=== PATIENT | male | born 1985 | race Caucasian/White ===

== ENCOUNTER 2018-03-25 08:17 | Emergency (ER) | payer OTHER ==
[2018-03-25 08:25] VITALS: TEMP 97.7
[2018-03-25] MEDS ORDERED: ONDANSETRON 4 MG/2 ML VIAL IVP STA ×2 (08:36→09:03)
[2018-03-25] MEDS ORDERED: MORPHINE SULFATE 4 MG/ML SYRINGE IV STA (08:36)
[2018-03-25] MEDS ORDERED: SODIUM CHLORIDE 0.9% 1,000 ML IV STA (08:36)
--- NOTE | 2018-03-25 08:45 | ED ---
General Adult HPI - General Chief complaint: Nausea/Vomiting/Diarrhea Stated complaint: Abd Pain Time Seen by Provider: 03/25/18 08:26 Source: patient, RN notes reviewed Mode of arrival: wheelchair Limitations: no limitations - History of Present Illness Initial comments: Patient 32-year-old male with significant past medical history for Behcet's disease, presented to the emergency room today with a chief complaint of increased nausea vomiting that started early this morning proxy 4 AM. Patient does admit that he's had some similar symptoms in the past with his Behcet's. Patient does admit that he had a bowel movement this morning that was loose. Does admit to pain on the left side of the abdomen. Admits to increased nausea vomiting. Denies any signs of blood in the emesis. Patient denies any other complaints currently. Patient denies any recent fever, chills, shortness of breath, chest pain, back pain, nausea or vomiting, numbness or tingling, dysuria or hematuria, headaches or visual changes, or any other complaints. - Related Data Home Medications Medication Instructions Recorded Confirmed Steroid (Unknown) 0 mg PO DIRECTED 03/25/18 Previous Rx's Medication Instructions Recorded Ondansetron Odt [Zofran ODT] 4 mg PO Q8HR PRN #20 tab 03/25/18 Allergies Allergy/AdvReac Type Severity Reaction Status Date / Time Milk Containing Products AdvReac Nausea & Verified 03/25/18 08:40 [Dairy] Vomiting Yeast AdvReac Nausea & Verified 03/25/18 08:40 Vomiting Review of Systems ROS Statement: Those systems with pertinent positive or pertinent negative responses have been documented in the HPI. ROS Other: All systems not noted in ROS Statement are negative. Past Medical History Additional Past Medical History / Comment(s): autoimmune disorder History of Any Multi-Drug Resistant Organisms: None Reported Past Psychological History: No Psychological Hx Reported Smoking Status: Never smoker Past Alcohol Use History: None Reported Past Drug Use History: None Reported General Exam - General Exam Comments Initial Comments: General: The patient is awake and alert, in mild distress. Eye: There is normal conjunctiva bilaterally. No signs of icterus. Ears, nose, mouth and throat: There are moist mucous membranes and no oral lesions. Neck: The neck is supple, there is no tenderness or JVD. Cardiovascular: There is a regular rate and rhythm. No murmur, rub or gallop is appreciated. Respiratory: Lungs are clear to auscultation, respirations are non-labored, breath sounds are equal. No wheezes, stridor, rales, or rhonchi. Gastrointestinal: Had a soft on palpation. Patient does have tenderness left side of the abdomen. No rebound, guarding or CVA tenderness. Musculoskeletal: Normal ROM, no tenderness. Strength 5/5. Sensation intact. Pulses equal bilaterally 2+. Neurological: A&O x 3. CN II-XII intact, There are no obvious motor or sensory deficits. Coordination appears grossly intact. Speech is normal. Skin: Skin is warm and dry and no rashes or lesions are noted. Psychiatric: Cooperative, appropriate mood & affect, normal judgment. Limitations: no limitations Course Vital Signs 03/25/18 03/25/18 03/25/18 08:22 09:30 10:52 Temperature 97.7 F Pulse Rate 84 51 L 50 L Respiratory 20 22 18 Rate Blood Pressure 154/63 136/87 130/84 O2 Sat by Pulse 99 100 98 Oximetry Medical Decision Making - Medical Decision Making CT of the abdomen and pelvis reviewed and shows 1. Mild pelvic free fluid nonspecific. 2 small prominent fluid-filled small bowel loops in the pelvis could reflect regional ileus/enteritis. 3. Mild hepatomegaly. 4. Periorbital edema within the liver suggests aggressive fluid adjacent. Patient reexamined at this time is resting comfortably. His abdomen is soft on palpation. He does admit that his had similar symptoms in the past with his Behcet's disease. Case discussed in detail with attending physician Dr. Morin. Patient has had episodes of vomiting. Will be given nausea medicine to go home with. Advised return if symptoms increase or worsen Patient will be given information follow-up with GI here locally. - Lab Data Result diagrams: 03/25/18 08:40 03/25/18 08:40 Lab Results 03/25/18 03/25/18 03/25/18 Range/Units 08:40 08:40 08:40 WBC 11.7 H (3.8-10.6) k/uL RBC 4.94 (4.30-5.90) m/uL Hgb 14.9 (13.0-17.5) gm/dL Hct 45.3 (39.0-53.0) % MCV 91.7 (80.0-100.0) fL MCH 30.2 (25.0-35.0) pg MCHC 32.9 (31.0-37.0) g/dL RDW 13.4 (11.5-15.5) % Plt Count 237 (150-450) k/uL Neutrophils % 75 % Lymphocytes % 18 % Monocytes % 4 % Eosinophils % 2 % Basophils % 0 % Neutrophils # 8.8 H (1.3-7.7) k/uL Lymphocytes # 2.1 (1.0-4.8) k/uL Monocytes # 0.5 (0-1.0) k/uL Eosinophils # 0.2 (0-0.7) k/uL Basophils # 0.0 (0-0.2) k/uL Sodium 142 (137-145) mmol/L Potassium 4.3 (3.5-5.1) mmol/L Chloride 110 H (98-107) mmol/L Carbon Dioxide 24 (22-30) mmol/L Anion Gap 8 mmol/L BUN 17 (9-20) mg/dL Creatinine 1.02 (0.66-1.25) mg/dL Est GFR (CKD-EPI)AfAm >90 (>60 ml/min/1.73 sqM) Est GFR (CKD-EPI)NonAf >90 (>60 ml/min/1.73 sqM) Glucose 107 H (74-99) mg/dL Plasma Lactic Acid Jerry 1.2 (0.7-2.0) mmol/L Calcium 10.2 (8.4-10.2) mg/dL Total Bilirubin 0.7 (0.2-1.3) mg/dL AST 53 (17-59) U/L ALT 41 (21-72) U/L Alkaline Phosphatase 50 (38-126) U/L Total Protein 7.1 (6.3-8.2) g/dL Albumin 4.4 (3.5-5.0) g/dL Amylase 74 (30-110) U/L Lipase 68 (23-300) U/L Disposition Clinical Impression: Abdominal pain Disposition: HOME SELF-CARE Condition: Good Instructions: Abdominal Pain (ED) Additional Instructions: Please use medication as discussed. Please follow-up with GI/family doctor in the next 2 days of symptoms have not improved. Please return to emergency room if the symptoms increase or worsen or for any other concerns. Prescriptions: Ondansetron Odt [Zofran ODT] 4 mg PO Q8HR PRN #20 tab PRN Reason: Nausea Is patient prescribed a controlled substance at d/c from ED?: No Referrals: None,Stated [Primary Care Provider] - 1-2 days Rachel Alexis MD [STAFF PHYSICIAN] - 1-2 days Sophy Patel MD [REFERRING] - 1-2 days Micheal Foy DO [STAFF PHYSICIAN] - 1-2 days Time of Disposition: 11:19
[2018-03-25 09:00] LABS: Basophils % (A) 0 %; Eosinophils # (A) 0.2 k/uL (0-0.7); Eosinophils % (A) 2 %; HCT 45.3 % (39.0-53.0); HGB 14.9 gm/dL (13.0-17.5); Lymphocytes # (A) 2.1 k/uL (1.0-4.8); Lymphocytes % (A) 18 %; MCH 30.2 pg (25.0-35.0); MCHC 32.9 g/dL (31.0-37.0); MCV 91.7 fL (80.0-100.0); Mean Platelet Volume 7.2; Monocytes # (A) 0.5 k/uL (0-1.0); Monocytes % (A) 4 %; Neutrophils # (A) 8.8 k/uL (1.3-7.7); Neutrophils % (A) 75 %; Platelet Count 237 k/uL (150-450); RBC 4.94 m/uL (4.30-5.90); RDW 13.4 % (11.5-15.5); WBC 11.7 k/uL (3.8-10.6)
[2018-03-25] MEDS ORDERED: LORazepam 2 MG/ML INJ IV STA (09:03)
[2018-03-25 09:04] LABS: ALT 41 U/L (21-72); AST 53 U/L (17-59); Albumin 4.4 g/dL (3.5-5.0); Alkaline Phosphatase 50 U/L (38-126); Amylase 74 U/L (30-110); Anion Gap 8 mmol/L; Blood Urea Nitrogen 17 mg/dL (9-20); Calcium 10.2 mg/dL (8.4-10.2); Carbon Dioxide 24 mmol/L (22-30); Chloride 110 mmol/L (98-107); Glucose 107 mg/dL (74-99); Lipase 68 U/L (23-300); Potassium 4.3 mmol/L (3.5-5.1); Sodium 142 mmol/L (137-145); Total Bilirubin 0.7 mg/dL (0.2-1.3); Total Protein 7.1 g/dL (6.3-8.2)
[2018-03-25] MEDS ORDERED: HYDROmorphone 1 MG/ML 1 ML SYRINGE IVP STA (10:26)
[2018-03-25] MEDS ORDERED: PROMETHAZINE INJ 25 MG in SODIUM CHLORIDE 0.9% 50 ML IVPB STA (10:27)
--- NOTE | 2018-03-25 10:48 | CT ---
EXAMINATION TYPE: CT abdomen pelvis w con DATE OF EXAM: 03/25/2018 COMPARISON: NONE HISTORY: 32-year-old male Generalized abd pain, patient has Behcet's autoimmune disease TECHNIQUE: Contiguous axial scanning of the abdomen and pelvis following administration of 100 ml Iso rosalinda 300 IV contrast. Delayed images through the kidneys and coronal/sagittal reconstructions perform ed. CT DLP: 705.5 mGycm Automated exposure control for dose reduction was used. FINDINGS: Heart normal size without pericardial effusion. Tiny hiatal hernia. Lung bases clear without pleural effusion. Liver mildly enlarged at 18.0 cm. There is periportal edema likely due to aggressive hydration; ross l venous system is patent. No biliary ductal dilatation. Gallbladder, adrenal glands, kidneys, spleen, and pancreas appear within normal limits. Incidentally, there are 2 right renal veins. Symmetric uptake and excretion of contrast from both kid neys. No dilated small bowel, free fluid, or free air. No mesenteric or retroperitoneal lymphadenopathy. Normal appendix. Mild stool burden. No pericolonic inflammatory change. Some prominent right-sided mesenteric lymph nodes measure up to 6 mm. Otherwise, no mesenteric or re troperitoneal lymphadenopathy seen. There are a couple prominent fluid-filled small bowel loops in the pelvis. Adjacent mild pelvic free fluid. No pelvic lymphadenopathy seen. Bladder is urine distended. Bones: Mild degenerative disc disease thoracolumbar junction. No osseous destructive process. IMPRESSION: 1. MILD PELVIC FREE FLUID IS NONSPECIFIC BUT ABNORMAL IN A MALE PATIENT. 2. SOME PROMINENT FLUID FILLED SMALL BOWEL LOOPS IN THE PELVIS COULD REFLECT A REGIONAL ILEUS OR ENTE RITIS. THE PELVIC FREE FLUID MAY BE REACTIVE. 3. MILD HEPATOMEGALY (18.0 CM). 4. PERIPORTAL EDEMA WITHIN THE LIVER SUGGESTS AGGRESSIVE FLUID HYDRATION. CLINICALLY CORRELATE.
[2018-03-25 10:53] VITALS: BP 130/84; PULSE 50; RESP 18
== END 2018-03-25 11:38 | disposition home or self-care (01) ==
LOC: EC 08:17
DX: R10.9 Unspecified abdominal pain (principal); R11.2 Nausea with vomiting, unspecified; R19.7 Diarrhea, unspecified; R16.0 Hepatomegaly, not elsewhere classified; M35.2 Behcet's disease; Z91.011 Allergy to milk products; Z91.018 Allergy to other foods
CPT/HCPCS: 99284; 96374; 96375 ×4; 96376; 96361; 36415; 80053; 82150; 83605; 83690; 85025; 74177; J2060; J2270; J2550; J2405; J1170; Q9967

== ENCOUNTER 2018-03-27 10:00 | Emergency (ER) | payer OTHER ==
[2018-03-27 10:05] VITALS: TEMP 98
[2018-03-27] MEDS ORDERED: SODIUM CHLORIDE 0.9% 1,000 ML IV STA ×2 (10:38)
[2018-03-27] MEDS ORDERED: ONDANSETRON 4 MG/2 ML VIAL IVP STA (10:38)
[2018-03-27] MEDS ORDERED: PANTOPRAZOLE 40 MG/10 ML VIAL IVP STA (10:39)
[2018-03-27] MEDS ORDERED: HYDROmorphone 1 MG/ML 1 ML SYRINGE IVP STA (10:45)
[2018-03-27] MEDS ORDERED: DIAZEPAM 5 MG/ML 2 ML INJ IVP STA (10:45)
--- NOTE | 2018-03-27 11:02 | ED ---
Nausea/Vomiting/Diarrhea HPI - General Chief complaint: Nausea/Vomiting/Diarrhea Stated complaint: vomiting Time Seen by Provider: 03/27/18 10:16 Source: patient Mode of arrival: ambulatory Limitations: no limitations - History of Present Illness Initial comments: This is a 32-year-old male the ER for evaluation. Today's presenting for evaluation of nausea vomiting and pain severe pain history of autoimmune disease that causes him to have severe pain, was travel history no sick contacts no medication withdrawal. Significant nausea and vomiting persistent, patient was here recently for similar complaint. MD complaint: nausea, vomiting -: days(s) Description of Vomiting: food contents, bilious Associated Abdominal Pain: Yes Location: diffuse Radiation: none Severity: moderate Severity scale (1-10): 7 Quality: cramping, aching Consistency: constant Improves with: none Worsens with: none Context: other (History of similar symptoms) Associated Symptoms: myalgias, loss of appetite, nausea/vomiting - Related Data Home Medications Medication Instructions Recorded Confirmed No Known Home Medications 03/27/18 03/27/18 Allergies Allergy/AdvReac Type Severity Reaction Status Date / Time Milk Containing Products AdvReac Nausea & Verified 03/27/18 10:25 [Dairy] Vomiting Yeast AdvReac Nausea & Verified 03/27/18 10:25 Vomiting Review of Systems ROS Statement: Those systems with pertinent positive or pertinent negative responses have been documented in the HPI. ROS Other: All systems not noted in ROS Statement are negative. Past Medical History Additional Past Medical History / Comment(s): autoimmune disorder History of Any Multi-Drug Resistant Organisms: None Reported Past Surgical History: No Surgical Hx Reported Past Psychological History: No Psychological Hx Reported Smoking Status: Never smoker Past Alcohol Use History: None Reported Past Drug Use History: None Reported General Exam Limitations: no limitations General appearance: alert, in no apparent distress Head exam: Present: atraumatic, normocephalic, normal inspection Eye exam: Present: normal appearance, PERRL, EOMI. Absent: scleral icterus, conjunctival injection, periorbital swelling ENT exam: Present: normal exam, mucous membranes moist Neck exam: Present: normal inspection. Absent: tenderness, meningismus, lymphadenopathy Respiratory exam: Present: normal lung sounds bilaterally. Absent: respiratory distress, wheezes, rales, rhonchi, stridor Cardiovascular Exam: Present: regular rate, normal rhythm, normal heart sounds. Absent: systolic murmur, diastolic murmur, rubs, gallop, clicks GI/Abdominal exam: Present: soft, normal bowel sounds. Absent: distended, tenderness, guarding, rebound, rigid Extremities exam: Present: normal inspection, full ROM, normal capillary refill. Absent: tenderness, pedal edema, joint swelling, calf tenderness Back exam: Present: normal inspection Neurological exam: Present: alert, oriented X3, CN II-XII intact Psychiatric exam: Present: normal affect, normal mood Skin exam: Present: warm, dry, intact, normal color. Absent: rash Course Vital Signs 03/27/18 10:01 Temperature 98 F Pulse Rate 56 L Respiratory 20 Rate Blood Pressure 142/90 O2 Sat by Pulse 99 Oximetry - Reevaluation(s) Reevaluation #1: 03/27/18 11:01 Medical record is reviewed Reevaluation #2: 03/27/18 11:56 Patient is currently feeling improved Medical Decision Making - Medical Decision Making 32 male to the ED co [place], abdominal pain, severe pain, no fever, feeling better and OK for dc - Lab Data Result diagrams: 03/27/18 10:37 03/27/18 10:37 Lab Results 03/27/18 03/27/18 Range/Units 10:37 10:37 WBC 10.1 (3.8-10.6) k/uL RBC 5.26 (4.30-5.90) m/uL Hgb 15.6 (13.0-17.5) gm/dL Hct 47.5 (39.0-53.0) % MCV 90.3 (80.0-100.0) fL MCH 29.6 (25.0-35.0) pg MCHC 32.8 (31.0-37.0) g/dL RDW 13.1 (11.5-15.5) % Plt Count 238 (150-450) k/uL Neutrophils % 79 % Lymphocytes % 16 % Monocytes % 3 % Eosinophils % 1 % Basophils % 0 % Neutrophils # 8.0 H (1.3-7.7) k/uL Lymphocytes # 1.6 (1.0-4.8) k/uL Monocytes # 0.4 (0-1.0) k/uL Eosinophils # 0.1 (0-0.7) k/uL Basophils # 0.0 (0-0.2) k/uL Sodium 141 (137-145) mmol/L Potassium 4.3 (3.5-5.1) mmol/L Chloride 108 H (98-107) mmol/L Carbon Dioxide 25 (22-30) mmol/L Anion Gap 8 mmol/L BUN 13 (9-20) mg/dL Creatinine 1.03 (0.66-1.25) mg/dL Est GFR (CKD-EPI)AfAm >90 (>60 ml/min/1.73 sqM) Est GFR (CKD-EPI)NonAf >90 (>60 ml/min/1.73 sqM) Glucose 106 H (74-99) mg/dL Calcium 9.9 (8.4-10.2) mg/dL Phosphorus 3.9 (2.5-4.5) mg/dL Magnesium 1.9 (1.6-2.3) mg/dL Total Bilirubin 0.6 (0.2-1.3) mg/dL AST 38 (17-59) U/L ALT 38 (21-72) U/L Alkaline Phosphatase 43 (38-126) U/L Total Protein 7.0 (6.3-8.2) g/dL Albumin 4.3 (3.5-5.0) g/dL - EKG Data -: EKG Interpreted by Me (EKG shows bradycardia rate of 45, WA 150, QRS 106, QTc 408) Disposition Clinical Impression: Abdominal pain, Dehydration, Nausea and vomiting Disposition: HOME SELF-CARE Instructions: Acute Nausea and Vomiting (ED), Abdominal Pain (ED) Is patient prescribed a controlled substance at d/c from ED?: No Referrals: None,Stated [Primary Care Provider] - 1-2 days
[2018-03-27 11:07] LABS: Basophils % (A) 0 %; Eosinophils # (A) 0.1 k/uL (0-0.7); Eosinophils % (A) 1 %; HCT 47.5 % (39.0-53.0); HGB 15.6 gm/dL (13.0-17.5); Lymphocytes # (A) 1.6 k/uL (1.0-4.8); Lymphocytes % (A) 16 %; MCH 29.6 pg (25.0-35.0); MCHC 32.8 g/dL (31.0-37.0); MCV 90.3 fL (80.0-100.0); Mean Platelet Volume 7.3; Monocytes # (A) 0.4 k/uL (0-1.0); Monocytes % (A) 3 %; Neutrophils % (A) 79 %; Platelet Count 238 k/uL (150-450); RBC 5.26 m/uL (4.30-5.90); RDW 13.1 % (11.5-15.5); WBC 10.1 k/uL (3.8-10.6)
[2018-03-27 11:23] LABS: ALT 38 U/L (21-72); AST 38 U/L (17-59); Albumin 4.3 g/dL (3.5-5.0); Alkaline Phosphatase 43 U/L (38-126); Anion Gap 8 mmol/L; Blood Urea Nitrogen 13 mg/dL (9-20); Calcium 9.9 mg/dL (8.4-10.2); Carbon Dioxide 25 mmol/L (22-30); Chloride 108 mmol/L (98-107); Glucose 106 mg/dL (74-99); Magnesium 1.9 mg/dL (1.6-2.3); Phosphorus 3.9 mg/dL (2.5-4.5); Potassium 4.3 mmol/L (3.5-5.1); Sodium 141 mmol/L (137-145); Total Bilirubin 0.6 mg/dL (0.2-1.3)
--- NOTE | 2018-03-27 12:34 | XR ---
EXAMINATION TYPE: XR abdomen acute w cxr DATE OF EXAM: 03/27/2018 COMPARISON: CT abdomen pelvis 03/25/2018 HISTORY: Abdominal pain vomiting nausea TECHNIQUE: Abdomen is examined in the supine and upright views and supplemented with a frontal chest. FINDINGS: Normal colonic bowel gas is present. There may be some nonspecific small bowel gas present. No suspicious air-fluid levels or differential air-fluid levels are present. No free air is present. Psoas margins are normal. Organomegaly is not evident. No calcifications are evident. Lung pena ar e clear. Heart size is normal. IMPRESSION: 1. Normal acute abdominal series.
[2018-03-27 14:21] VITALS: BP 153/88; PULSE 45; RESP 16
== END 2018-03-27 14:25 | disposition home or self-care (01) ==
LOC: EC 10:00
DX: E86.0 Dehydration (principal); R10.84 Generalized abdominal pain; R11.2 Nausea with vomiting, unspecified; M79.10 Myalgia, unspecified site; Z91.011 Allergy to milk products; Z91.048 Other nonmedicinal substance allergy status
CPT/HCPCS: 36415; 93005; 80053; 83735; 84100; 85025; 74022; 99284; 96374; 96375 ×3; 96361; J3360; J2405; J1170; C9113

== ENCOUNTER 2018-03-29 10:46 | Emergency (ER) | payer OTHER ==
[2018-03-29] MEDS ORDERED: HYDROmorphone 1 MG/ML 1 ML SYRINGE IVP STA (12:01)
[2018-03-29] MEDS ORDERED: SODIUM CHLORIDE 0.9% 1,000 ML IV STA (12:01)
[2018-03-29] MEDS ORDERED: ONDANSETRON 4 MG/2 ML VIAL IVP STA (12:01)
--- NOTE | 2018-03-29 12:08 | ED ---
General Adult HPI - General Chief complaint: Abdominal Pain Stated complaint: abdominal & back pain Time Seen by Provider: 03/29/18 11:38 Source: patient, RN notes reviewed, old records reviewed Mode of arrival: ambulatory Limitations: no limitations - History of Present Illness Initial comments: Patient's a 32-year-old male with a significant past medical history of Behcet' s disease, presenting to the emergency room today with a chief complaint of increased abdominal pain. Patient states that he's been having pain over the last 5 days been here in the emergency room twice for it. He states he's had pain similar to this in the past with his shots. He states had multiple episodes of nausea vomiting. He does admit that the pain somewhat better at this time. He is trying to get back home to see his specialist states he was having pain since 8:00 last night after eating some chicken. He states that increased nausea vomiting again since that time. He states his symptoms are the same. He denies any other complaints or symptoms at this time. Patient denies any recent fever, chills, shortness of breath, chest pain, numbness or tingling, headaches or visual changes, or any other complaints. - Related Data Previous Rx's Medication Instructions Recorded Ondansetron Odt [Zofran ODT] 4 mg PO Q8HR PRN #30 tab 03/27/18 ALPRAZolam [Xanax] 0.5 mg PO BID #6 tablet 03/29/18 Ondansetron Odt [Zofran ODT] 4 mg PO Q8HR PRN #20 tab 03/29/18 Allergies Allergy/AdvReac Type Severity Reaction Status Date / Time Milk Containing Products AdvReac Nausea & Verified 03/29/18 11:14 [Dairy] Vomiting Yeast AdvReac Nausea & Verified 03/29/18 11:14 Vomiting Review of Systems ROS Statement: Those systems with pertinent positive or pertinent negative responses have been documented in the HPI. ROS Other: All systems not noted in ROS Statement are negative. Past Medical History Additional Past Medical History / Comment(s): autoimmune disorder History of Any Multi-Drug Resistant Organisms: None Reported Past Surgical History: No Surgical Hx Reported Past Psychological History: No Psychological Hx Reported Smoking Status: Never smoker Past Alcohol Use History: None Reported Past Drug Use History: None Reported General Exam - General Exam Comments Initial Comments: General: The patient is awake and alert, in no distress, and does not appear acutely ill. Eye: There is normal conjunctiva bilaterally. No signs of icterus. Ears, nose, mouth and throat: There are moist mucous membranes and no oral lesions. Neck: The neck is supple, there is no tenderness or JVD. Cardiovascular: There is a regular rate and rhythm. No murmur, rub or gallop is appreciated. Respiratory: Lungs are clear to auscultation, respirations are non-labored, breath sounds are equal. No wheezes, stridor, rales, or rhonchi. Gastrointestinal: Soft on palpation. No specific tenderness. Bowel sounds are normal. No rebound, guarding or CVA tenderness. Musculoskeletal: Normal ROM, no tenderness. Strength 5/5. Sensation intact. Pulses equal bilaterally 2+. Neurological: A&O x 3. CN II-XII intact, There are no obvious motor or sensory deficits. Coordination appears grossly intact. Speech is normal. Skin: Skin is warm and dry and no rashes or lesions are noted. Psychiatric: Cooperative, appropriate mood & affect, normal judgment. Limitations: no limitations Course Vital Signs 03/29/18 11:13 Temperature 97.4 F L Pulse Rate 53 L Respiratory 20 Rate Blood Pressure 132/85 O2 Sat by Pulse 99 Oximetry Medical Decision Making - Medical Decision Making Patient's labs been reviewed and are unremarkable. There compared to previous visits. Patient had a CAT scan on previous visit which was reviewed. Patient states that he's had these symptoms in the past with his Behcet's disease. He states that at this time he is feeling much better. His abdomen is soft nontender. Patient about a CAT scan today. He has declined this. States he knows what the problem is and that it's related to his Behcet's. He states he is planning follow-up with his family doctor is back in [place]. Patient states he does not want to be admitted here at the hospital feels much better at this time comfortable being discharged. Patient will be given Zofran for nausea. States he has had a difficult time sleeping and requesting something to help him relax at night because of these episodes. Will be given a short prescription of Xanax to use at nighttime. Patient advised return if any symptoms increase or worsen he states understanding and is in agreement. - Lab Data Result diagrams: 03/29/18 11:52 03/29/18 11:52 Lab Results 03/29/18 03/29/18 03/29/18 Range/Units 11:52 11:52 11:52 WBC 8.7 (3.8-10.6) k/uL RBC 5.14 (4.30-5.90) m/uL Hgb 15.6 (13.0-17.5) gm/dL Hct 46.5 (39.0-53.0) % MCV 90.5 (80.0-100.0) fL MCH 30.4 (25.0-35.0) pg MCHC 33.6 (31.0-37.0) g/dL RDW 13.2 (11.5-15.5) % Plt Count 209 (150-450) k/uL Neutrophils % 75 % Lymphocytes % 18 % Monocytes % 4 % Eosinophils % 2 % Basophils % 0 % Neutrophils # 6.5 (1.3-7.7) k/uL Lymphocytes # 1.6 (1.0-4.8) k/uL Monocytes # 0.4 (0-1.0) k/uL Eosinophils # 0.1 (0-0.7) k/uL Basophils # 0.0 (0-0.2) k/uL Sodium 138 (137-145) mmol/L Potassium 4.4 (3.5-5.1) mmol/L Chloride 106 (98-107) mmol/L Carbon Dioxide 24 (22-30) mmol/L Anion Gap 8 mmol/L BUN 14 (9-20) mg/dL Creatinine 1.09 (0.66-1.25) mg/dL Est GFR (CKD-EPI)AfAm >90 (>60 ml/min/1.73 sqM) Est GFR (CKD-EPI)NonAf >90 (>60 ml/min/1.73 sqM) Glucose 95 (74-99) mg/dL Plasma Lactic Acid Jerry 0.8 (0.7-2.0) mmol/L Calcium 9.7 (8.4-10.2) mg/dL Total Bilirubin 0.7 (0.2-1.3) mg/dL AST 32 (17-59) U/L ALT 33 (21-72) U/L Alkaline Phosphatase 46 (38-126) U/L Total Protein 7.0 (6.3-8.2) g/dL Albumin 4.3 (3.5-5.0) g/dL Amylase 67 (30-110) U/L Lipase 87 (23-300) U/L Disposition Clinical Impression: Abdominal pain Disposition: HOME SELF-CARE Condition: Good Instructions: Abdominal Pain (ED) Additional Instructions: Please use medication as discussed. Please follow-up with family doctor in the next 2 days. Please return to emergency room if the symptoms increase or worsen or for any other concerns. Prescriptions: ALPRAZolam [Xanax] 0.5 mg PO BID #6 tablet Ondansetron Odt [Zofran ODT] 4 mg PO Q8HR PRN #20 tab PRN Reason: Nausea Is patient prescribed a controlled substance at d/c from ED?: No Referrals: None,Stated [Primary Care Provider] - 1-2 days Time of Disposition: 14:13
[2018-03-29 12:18] LABS: Basophils % (A) 0 %; Eosinophils # (A) 0.1 k/uL (0-0.7); Eosinophils % (A) 2 %; HCT 46.5 % (39.0-53.0); HGB 15.6 gm/dL (13.0-17.5); Lymphocytes # (A) 1.6 k/uL (1.0-4.8); Lymphocytes % (A) 18 %; MCH 30.4 pg (25.0-35.0); MCHC 33.6 g/dL (31.0-37.0); MCV 90.5 fL (80.0-100.0); Mean Platelet Volume 7.4; Monocytes # (A) 0.4 k/uL (0-1.0); Monocytes % (A) 4 %; Neutrophils # (A) 6.5 k/uL (1.3-7.7); Neutrophils % (A) 75 %; Platelet Count 209 k/uL (150-450); RBC 5.14 m/uL (4.30-5.90); RDW 13.2 % (11.5-15.5); WBC 8.7 k/uL (3.8-10.6)
[2018-03-29 12:27] LABS: ALT 33 U/L (21-72); AST 32 U/L (17-59); Albumin 4.3 g/dL (3.5-5.0); Alkaline Phosphatase 46 U/L (38-126); Amylase 67 U/L (30-110); Anion Gap 8 mmol/L; Blood Urea Nitrogen 14 mg/dL (9-20); Calcium 9.7 mg/dL (8.4-10.2); Carbon Dioxide 24 mmol/L (22-30); Chloride 106 mmol/L (98-107); Glucose 95 mg/dL (74-99); Lipase 87 U/L (23-300); Potassium 4.4 mmol/L (3.5-5.1); Sodium 138 mmol/L (137-145); Total Bilirubin 0.7 mg/dL (0.2-1.3)
--- NOTE | 2018-03-29 13:30 | XR ---
EXAMINATION TYPE: XR KUB , 2 VIEWS DATE OF EXAM ORDERED: 03/29/2018 HISTORY: abdominal pain. COMPARISON: None. FINDINGS: The lung bases are clear. Within the abdomen, the abdominal gas pattern is within normal limits. There is no evidence of obstru ction or free air. No unusual calcifications are seen. IMPRESSION: NO ACUTE INTRA-ABDOMINAL ABNORMALITY.
[2018-03-29 14:26] VITALS: BP 134/70; PULSE 77; RESP 16; TEMP 97.8
[2018-03-29 14:31] LABS: Appearance,Urine Clear (Clear); Bilirubin,Urine Negative (Negative); Blood,Urine Negative (Negative); Color,Urine Light Yellow; Glucose,Urine (UA) Negative (Negative); Ketones,Urine Negative (Negative); Leukocyte Esterase,Urine Negative (Negative); Nitrite,Urine Negative (Negative); Protein,Urine Negative (Negative); Specific Gravity,Urine 1.008 (1.001-1.035); Urobilinogen,Urine <2.0 mg/dL (<2.0)
== END 2018-03-29 14:24 | disposition home or self-care (01) ==
LOC: EC 10:46
DX: R10.9 Unspecified abdominal pain (principal); R11.2 Nausea with vomiting, unspecified; M35.2 Behcet's disease; Z91.011 Allergy to milk products; Z91.018 Allergy to other foods
CPT/HCPCS: 36415; 80053; 82150; 83605; 83690; 85025; 81003; 74018; 99284; 96374; 96375; 96361; J2405; J1170

== ENCOUNTER 2018-03-31 11:48 | Observation (INO) | payer OTHER ==
[2018-03-31] MEDS ORDERED: PANTOPRAZOLE 40 MG/10 ML VIAL IVP STA (12:09)
[2018-03-31] MEDS ORDERED: SODIUM CHLORIDE 0.9% 2,000 ML IV STA (12:09)
[2018-03-31] MEDS ORDERED: ONDANSETRON 4 MG/2 ML VIAL IVP STA (12:09)
[2018-03-31] MEDS ORDERED: HYDROmorphone 1 MG/ML 1 ML SYRINGE IVP STA (12:42)
[2018-03-31 12:54] LABS: Basophils % (A) 0 %; Eosinophils # (A) 0.1 k/uL (0-0.7); Eosinophils % (A) 2 %; HCT 46.1 % (39.0-53.0); HGB 15.6 gm/dL (13.0-17.5); Lymphocytes # (A) 1.5 k/uL (1.0-4.8); Lymphocytes % (A) 20 %; MCH 30.4 pg (25.0-35.0); MCHC 33.8 g/dL (31.0-37.0); MCV 89.9 fL (80.0-100.0); Mean Platelet Volume 7.1; Monocytes # (A) 0.4 k/uL (0-1.0); Monocytes % (A) 5 %; Neutrophils # (A) 5.1 k/uL (1.3-7.7); Neutrophils % (A) 70 %; Platelet Count 214 k/uL (150-450); RBC 5.12 m/uL (4.30-5.90); RDW 13.2 % (11.5-15.5); WBC 7.2 k/uL (3.8-10.6)
[2018-03-31 13:04] LABS: ALT 36 U/L (21-72); AST 28 U/L (17-59); Albumin 4.5 g/dL (3.5-5.0); Alkaline Phosphatase 41 U/L (38-126); Amylase 54 U/L (30-110); Anion Gap 9 mmol/L; Blood Urea Nitrogen 16 mg/dL (9-20); Calcium 10.2 mg/dL (8.4-10.2); Carbon Dioxide 27 mmol/L (22-30); Chloride 104 mmol/L (98-107); Glucose 102 mg/dL (74-99); Lipase 49 U/L (23-300); Potassium 4.7 mmol/L (3.5-5.1); Sodium 140 mmol/L (137-145); Total Bilirubin 0.6 mg/dL (0.2-1.3); Total Protein 7.1 g/dL (6.3-8.2)
--- NOTE | 2018-03-31 14:07 | ED ---
Nausea/Vomiting/Diarrhea HPI - General Source: patient Mode of arrival: ambulatory Limitations: no limitations <Matthew Bynum - Last Filed: 03/31/18 15:20> <Nicholas Morton - Last Filed: 03/31/18 15:40> - General Chief complaint: Nausea/Vomiting/Diarrhea Stated complaint: Vomiting Time Seen by Provider: 03/31/18 12:05 - History of Present Illness Initial comments: 32-year-old male presents emergency Department chief complaint abdominal pain. Patient's had 3 ER visits last 6 days for the same complaint. 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 He states never had symptoms last as long. 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 Patient states he had extensive testing for this. Patient states that when he has issues it always been abdominal pain nausea vomiting but never lasted to this complaint. Patient states that he is physically fit he currently plays hockey for local hockey team. Patient denies illicit drug use. Patient denies any chest pain. He states the pain gets so bad that it feels it's hard to breathe. Patient states that he feels better at times but then gets severely worse. He's had no diarrhea no melena no constipation no hematochezia. Patient denies any dysuria no hematuria. (Matthew Bynum) - Related Data Home Medications Medication Instructions Recorded Confirmed No Known Home Medications 03/31/18 03/31/18 Allergies Allergy/AdvReac Type Severity Reaction Status Date / Time Milk Containing Products AdvReac Nausea & Verified 03/31/18 12:17 [Dairy] Vomiting Yeast AdvReac Nausea & Verified 03/31/18 12:17 Vomiting Review of Systems ROS Other: All systems not noted in ROS Statement are negative. <Matthew Bynum - Last Filed: 03/31/18 15:20> ROS Other: All systems not noted in ROS Statement are negative. <Nicholas Morton - Last Filed: 03/31/18 15:40> ROS Statement: Those systems with pertinent positive or pertinent negative responses have been documented in the HPI. Past Medical History Additional Past Medical History / Comment(s): autoimmune disorder History of Any Multi-Drug Resistant Organisms: None Reported Past Surgical History: No Surgical Hx Reported Past Psychological History: No Psychological Hx Reported Smoking Status: Never smoker Past Alcohol Use History: None Reported Past Drug Use History: None Reported <Matthew Bynum - Last Filed: 03/31/18 15:20> General Exam Limitations: no limitations General appearance: alert, in no apparent distress Head exam: Present: atraumatic, normocephalic, normal inspection Eye exam: Present: normal appearance, PERRL, EOMI. Absent: scleral icterus, conjunctival injection, periorbital swelling ENT exam: Present: normal exam, mucous membranes moist Respiratory exam: Present: normal lung sounds bilaterally. Absent: respiratory distress, wheezes, rales, rhonchi, stridor Cardiovascular Exam: Present: regular rate, normal rhythm, normal heart sounds. Absent: systolic murmur, diastolic murmur, rubs, gallop, clicks GI/Abdominal exam: Present: soft, tenderness (Moderate tenderness mid to left upper quadrant), normal bowel sounds. Absent: distended, guarding, rebound, rigid Back exam: Absent: CVA tenderness (R), CVA tenderness (L) Neurological exam: Present: alert, oriented X3, CN II-XII intact Skin exam: Present: warm, dry, intact, normal color. Absent: rash <Matthew Bynum - Last Filed: 03/31/18 15:20> Course <Matthew Bynum - Last Filed: 03/31/18 15:20> <Nicholas Morton - Last Filed: 03/31/18 15:40> Vital Signs 03/31/18 03/31/18 11:56 13:45 Temperature 97.5 F L Pulse Rate 50 L 51 L Respiratory 18 17 Rate Blood Pressure 121/72 123/73 O2 Sat by Pulse 98 100 Oximetry - Reevaluation(s) Reevaluation #1: 03/31/18 15:39 PA supervision: I did personally review the case with my physician engineer first assistant we did discuss case with Dr. Daily who did come the emergency department see the patient. Visual be admitted. I do agree with the assessment and plan. (Nicholas Morton) Medical Decision Making - Lab Data Result diagrams: 03/31/18 12:35 03/31/18 12:35 <Matthew Bynum - Last Filed: 03/31/18 15:20> - Lab Data Result diagrams: 03/31/18 12:35 03/31/18 12:35 <Nicholas Morton - Last Filed: 03/31/18 15:40> - Medical Decision Making 32-year-old male presented emergency from for recheck of abdominal pain. Patient's had intractable abdominal pain. Patient had several ER visits for same complaints. Case discussed with Dr. Evangelista. Patient be admitted to obvious her GI consult. Pain control, antiemetics and IV hydration. (Matthew Bynum) - Lab Data Lab Results 03/31/18 03/31/18 03/31/18 Range/Units 12:35 12:35 12:35 WBC 7.2 (3.8-10.6) k/uL RBC 5.12 (4.30-5.90) m/uL Hgb 15.6 (13.0-17.5) gm/dL Hct 46.1 (39.0-53.0) % MCV 89.9 (80.0-100.0) fL MCH 30.4 (25.0-35.0) pg MCHC 33.8 (31.0-37.0) g/dL RDW 13.2 (11.5-15.5) % Plt Count 214 (150-450) k/uL Neutrophils % 70 % Lymphocytes % 20 % Monocytes % 5 % Eosinophils % 2 % Basophils % 0 % Neutrophils # 5.1 (1.3-7.7) k/uL Lymphocytes # 1.5 (1.0-4.8) k/uL Monocytes # 0.4 (0-1.0) k/uL Eosinophils # 0.1 (0-0.7) k/uL Basophils # 0.0 (0-0.2) k/uL Sodium 140 (137-145) mmol/L Potassium 4.7 (3.5-5.1) mmol/L Chloride 104 (98-107) mmol/L Carbon Dioxide 27 (22-30) mmol/L Anion Gap 9 mmol/L BUN 16 (9-20) mg/dL Creatinine 1.02 (0.66-1.25) mg/dL Est GFR (CKD-EPI)AfAm >90 (>60 ml/min/1.73 sqM) Est GFR (CKD-EPI)NonAf >90 (>60 ml/min/1.73 sqM) Glucose 102 H (74-99) mg/dL Plasma Lactic Acid Jerry 0.9 (0.7-2.0) mmol/L Calcium 10.2 (8.4-10.2) mg/dL Total Bilirubin 0.6 (0.2-1.3) mg/dL AST 28 (17-59) U/L ALT 36 (21-72) U/L Alkaline Phosphatase 41 (38-126) U/L C-Reactive Protein (<10.0) mg/L Total Protein 7.1 (6.3-8.2) g/dL Albumin 4.5 (3.5-5.0) g/dL Amylase 54 (30-110) U/L Lipase 49 (23-300) U/L Urine Color Urine Appearance (Clear) Urine pH (5.0-8.0) Ur Specific [place] (1.001-1.035) Urine Protein (Negative) Urine Glucose (UA) (Negative) Urine Ketones (Negative) Urine Blood (Negative) Urine Nitrite (Negative) Urine Bilirubin (Negative) Urine Urobilinogen (<2.0) mg/dL Ur Leukocyte Esterase (Negative) Urine Opiates Screen (NotDetected) Ur Oxycodone Screen (NotDetected) Urine Methadone Screen (NotDetected) Ur Propoxyphene Screen (NotDetected) Ur Barbiturates Screen (NotDetected) U Tricyclic Antidepress (NotDetected) Ur Phencyclidine Scrn (NotDetected) Ur Amphetamines Screen (NotDetected) U Methamphetamines Scrn (NotDetected) U Benzodiazepines Scrn (NotDetected) Urine Cocaine Screen (NotDetected) U Marijuana (THC) Screen (NotDetected) 03/31/18 03/31/18 Range/Units 12:35 14:57 WBC (3.8-10.6) k/uL RBC (4.30-5.90) m/uL Hgb (13.0-17.5) gm/dL Hct (39.0-53.0) % MCV (80.0-100.0) fL MCH (25.0-35.0) pg MCHC (31.0-37.0) g/dL RDW (11.5-15.5) % Plt Count (150-450) k/uL Neutrophils % % Lymphocytes % % Monocytes % % Eosinophils % % Basophils % % Neutrophils # (1.3-7.7) k/uL Lymphocytes # (1.0-4.8) k/uL Monocytes # (0-1.0) k/uL Eosinophils # (0-0.7) k/uL Basophils # (0-0.2) k/uL Sodium (137-145) mmol/L Potassium (3.5-5.1) mmol/L Chloride (98-107) mmol/L Carbon Dioxide (22-30) mmol/L Anion Gap mmol/L BUN (9-20) mg/dL Creatinine (0.66-1.25) mg/dL Est GFR (CKD-EPI)AfAm (>60 ml/min/1.73 sqM) Est GFR (CKD-EPI)NonAf (>60 ml/min/1.73 sqM) Glucose (74-99) mg/dL Plasma Lactic Acid Jerry (0.7-2.0) mmol/L Calcium (8.4-10.2) mg/dL Total Bilirubin (0.2-1.3) mg/dL AST (17-59) U/L ALT (21-72) U/L Alkaline Phosphatase (38-126) U/L C-Reactive Protein <5.0 (<10.0) mg/L Total Protein (6.3-8.2) g/dL Albumin (3.5-5.0) g/dL Amylase (30-110) U/L Lipase (23-300) U/L Urine Color Yellow Urine Appearance Clear (Clear) Urine pH 7.5 (5.0-8.0) Ur Specific [place] 1.015 (1.001-1.035) Urine Protein Negative (Negative) Urine Glucose (UA) Negative (Negative) Urine Ketones Negative (Negative) Urine Blood Negative (Negative) Urine Nitrite Negative (Negative) Urine Bilirubin Negative (Negative) Urine Urobilinogen <2.0 (<2.0) mg/dL Ur Leukocyte Esterase Negative (Negative) Urine Opiates Screen Not Detected (NotDetected) Ur Oxycodone Screen Not Detected (NotDetected) Urine Methadone Screen Not Detected (NotDetected) Ur Propoxyphene Screen Not Detected (NotDetected) Ur Barbiturates Screen Not Detected (NotDetected) U Tricyclic Antidepress Not Detected (NotDetected) Ur Phencyclidine Scrn Not Detected (NotDetected) Ur Amphetamines Screen Not Detected (NotDetected) U Methamphetamines Scrn Not Detected (NotDetected) U Benzodiazepines Scrn Detected H (NotDetected) Urine Cocaine Screen Not Detected (NotDetected) U Marijuana (THC) Screen Detected H (NotDetected) Disposition <Matthew Bynum - Last Filed: 03/31/18 15:20> <Nicholas Morton - Last Filed: 03/31/18 15:40> Clinical Impression: Intractable abdominal pain, Dehydration, Nausea and vomiting Disposition: ADMITTED IP TO THIS [facility] Condition: Fair Referrals: None,Stated [Primary Care Provider] - 1-2 days
[2018-03-31 15:17] LABS: Appearance,Urine Clear (Clear); Bilirubin,Urine Negative (Negative); Blood,Urine Negative (Negative); Color,Urine Yellow; Glucose,Urine (UA) Negative (Negative); Ketones,Urine Negative (Negative); Leukocyte Esterase,Urine Negative (Negative); Nitrite,Urine Negative (Negative); PH, Urine 7.5 (5.0-8.0); Protein,Urine Negative (Negative); Specific Gravity,Urine 1.015 (1.001-1.035); Urobilinogen,Urine <2.0 mg/dL (<2.0)
[2018-03-31] MEDS ORDERED: NALOXONE 0.4 MG/ML 1 ML VIAL IV PRN (15:21)
[2018-03-31] MEDS ORDERED: ONDANSETRON 4 MG/2 ML VIAL IVP PRN (15:21)
[2018-03-31] MEDS ORDERED: HYDROmorphone 1 MG/ML 1 ML SYRINGE IVP PRN ×2 (15:21)
[2018-03-31 15:26] LABS: Amphetamine Screen,Urine Not Detected (NotDetected); Benzodiazepines Screen,Urine Detected (NotDetected); Cocaine Screen,Urine Not Detected (NotDetected); Opiate Screen,Urine Not Detected (NotDetected); Phencyclidine Screen,Urine Not Detected (NotDetected); Urn Cannabinoid Scrn Detected (NotDetected)
[2018-03-31 15:27] LABS: Barbiturate Screen,Urine Not Detected (NotDetected); Methadone Screen, Urine Not Detected (NotDetected); Oxycodone Screen, Urine Not Detected (NotDetected); Tricyclic Antidepressant,Urine Not Detected (NotDetected)
--- NOTE | 2018-03-31 15:46 | P.HPIM ---
History of Present Illness H&P Date: 03/31/18 Chief Complaint: Abdominal pain 32-year-old male presents emergency Department chief complaint abdominal pain. Patient's had 3 ER visits last 6 days for the same complaint. 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 He states never had symptoms last as long. He states that he was diagnosed with Behcet's by a chief mechanical officer. Patient states he had extensive testing for this. Patient states that when he has issues it always been abdominal pain nausea vomiting but never lasted this long. Patient is reporting daily episodes of nonbloody bilious emesis and reports that his pain is worsened by food. Patient denies any diarrhea, constipation or hematochezia or melena Patient states that he is physically fit he currently plays hockey for local hockey team. In regard to his Behcets the patient reports she was previously on steroid therapy. Patient denies illicit drug use. Patient denies any chest pain. He states the pain gets so bad that it feels it's hard to breathe. Patient states that he feels better at times but then gets severely worse. Review of records indicates the patient recently had a CT abdomen and pelvis that suggested regional ileus or enteritis, indicated mild hepatomegaly. UDS is positive for benzodiazepines and marijuana. Patient is hemodynamically stable and afebrile. His admission labs are otherwise unremarkable Past Medical History Additional Past Medical History / Comment(s): autoimmune disorder History of Any Multi-Drug Resistant Organisms: None Reported Past Surgical History: No Surgical Hx Reported Past Psychological History: No Psychological Hx Reported Smoking Status: Never smoker Past Alcohol Use History: None Reported Past Drug Use History: None Reported Medications and Allergies Home Medications Medication Instructions Recorded Confirmed Type No Known Home Medications 03/31/18 03/31/18 History Allergies Allergy/AdvReac Type Severity Reaction Status Date / Time Milk Containing Products AdvReac Nausea & Verified 03/31/18 12:17 [Dairy] Vomiting Yeast AdvReac Nausea & Verified 03/31/18 12:17 Vomiting Physical Exam Vitals: Vital Signs Temp Pulse Resp BP Pulse Ox 03/31/18 13:45 51 L 17 123/73 100 03/31/18 11:56 97.5 F L 50 L 18 121/72 98 Intake and Output 03/31/18 03/31/18 03/31/18 06:59 14:59 22:59 Other: Weight 72.575 kg Constitutional: No acute distress, conversant, pleasant Eyes: Anicteric sclerae, moist conjunctiva, no lid-lag, PERRLA ENMT: NC/AT,Oropharynx clear, no erythema, exudates Neck:Supple, FROM, no masses, or JVD, No carotid bruits; No thyromegaly Lungs: Clear to auscultation, Clear to percussion, Normal respiratory effort, no accessory muscle use Cardiovascular: Heart regular in rate and rhythm, No murmurs, gallops, or rubs no peripheral edema Abdominal:TTP in epigastrium and mid abdomen, nom distended, no guarding, no rebound or rigidity, Normoactive bowel sounds No hepatomegaly, No splenomegaly , No palpable mass No abdominal wall hernia noted Skin: Normal temperature, tone, texture, turgor, No induration No subcutaneous nodules, No rash, lesions, No ulcers Extremities:No digital cyanosis No clubbing, Pedal pulses intact and symmetrical Radial pulses intact and symmetrical Normal gait and station, No calf tenderness Psychiatric: Alert and oriented to person, place and time, Appropriate affect Intact judgement Neuro: Muscles Strength 5/5 in all 4 extremities, Sensation to light touch grossly present throughout, Cranial nerves II-XII grossly intact. No focal sensory deficits Results CBC & Chem 7: 03/31/18 12:35 03/31/18 12:35 Labs: Abnormal Lab Results - Last 24 Hours (Table) 03/31/18 03/31/18 Range/Units 12:35 14:57 Glucose 102 H (74-99) mg/dL U Benzodiazepines Scrn Detected H (NotDetected) U Marijuana (THC) Screen Detected H (NotDetected) Assessment and Plan Assessment: Chronic medical issues Behcets Syndrome (1) Gastroenteritis Current Visit: Yes Status: Acute Code(s): K52.9 - NONINFECTIVE GASTROENTERITIS AND COLITIS, UNSPECIFIED SNOMED Code(s): 42245131 (2) Ileus Current Visit: Yes Status: Acute Code(s): K56.7 - ILEUS, UNSPECIFIED SNOMED Code(s): 357818874 (3) Intractable nausea and vomiting Current Visit: Yes Status: Acute Code(s): R11.2 - NAUSEA WITH VOMITING, UNSPECIFIED SNOMED Code(s): 506698061 (4) Abdominal pain Current Visit: No Status: Acute Code(s): R10.9 - UNSPECIFIED ABDOMINAL PAIN SNOMED Code(s): 68204434 (5) Marijuana abuse Current Visit: Yes Status: Acute Code(s): F12.10 - CANNABIS ABUSE, UNCOMPLICATED SNOMED Code(s): 48634070 Plan: The patient is placed in observation after presenting with intractable nausea vomiting and abdominal pain, likely secondary to gastroenteritis with subsequent ileus as seen on previous CT abdomen and pelvis. ED consulted GI given previous history of Behcets. We'll obtain inflammatory markers sed rate, patient is continued on clear liquid diet, supportive therapy with antiemetics Zofran and morphine when necessary for pain. We'll continue maintenance fluids and continue to follow his clinical course. CODE STATUS: Full code Discussed plan of care with: Patient Prophylaxis: Protonix and SCDs
[2018-03-31] MEDS: SODIUM CHLORIDE 0.9% 1,000 ML IV SCH (15:47)
[2018-03-31] MEDS ORDERED: MORPHINE SULFATE 4 MG/ML SYRINGE IVP PRN (15:53)
--- NOTE | 2018-03-31 15:58 | XR ---
Abdomen HISTORY: Pain Frontal view of the abdomen on 2 images correlated prior exam 03/29/2018 There is no evident change IMPRESSION: Stable exam, no acute abnormality.
[2018-03-31] MEDS ORDERED: ZOLPIDEM 5 MG TAB PO PRN (20:29)
[2018-04-01 07:24] VITALS: RESP 14
[2018-04-01] MEDS: SODIUM CHLORIDE 0.9% 1,000 ML IV SCH ×2 (07:27→12:33)
[2018-04-01] MEDS ORDERED: PANTOPRAZOLE 40 MG/10 ML VIAL IV SCH (09:00)
--- NOTE | 2018-04-01 11:31 | P.CONS ---
History of Present Illness - Reason for Consult Consult date: 04/01/18 Intractable nausea vomiting abdominal pain Requesting physician: Eliazar Daily - Chief Complaint Intractable nausea vomiting abdominal pain - History of Present Illness 32-year-old gentleman with a past medical history of Behcet's (2010), autoimmune blood vessel disease, cannabinoid use admitted with acute intractable nausea vomiting left-sided abdominal pain that started last . Patient thought he may have eaten some bad meat from [employer]. last week he was awakened with abdominal pain followed by multiple episodes of vomiting without gross hematemesis hematochezia melena. A few small loose bowel movements. Over the past week he was seen in the emergency room multiple times with these complaints and discharged without improvement. Yesterday he had an emesis in the morning but none since. Presently he feels better abdominal pain is improving. Denies fever or chills. Patient states he has similar presentation a year ago when the weather changed. He feels that his autoimmune disease is not tolerant to cold weather. He is not sure if he picked up a "stomach bug" and it flared up his autoimmune disease as well. White count 7.2. Hemoglobin 15.6. BUN 16. Creatinine 1.0. LFTs lipase within normal limits. Urinalysis unremarkable. CT abdomen 03/25/2018 possible regional ileus or enteritis. Mild free fluid in the pelvis and mild hepatomegaly 18 cm. KUB 2 stable no acute abnormality. Review of Systems Constitutional: Denies fever, chills, sweats, weight gain, or loss. HEENT: Negative for migraines, blurred vision or loss, earaches, drainage, tinnitus, oral mucosal lesions, dysphagia, or odynophagia. Cardiac: Negative for chest pain, arrhythmias, or palpitation. Respiratory: Negative for shortness of breath, hemoptysis, cough, or sputum production. Gastrointestinal: See HPI for pertinent findings. Genitourinary: Negative for hematuria, urgency, frequency, polyuria, dysuria, or penile discharge. Musculoskeletal: Negative for muscle aches, swelling, arthritis, and arthralgias. Neurologic: Negative for stroke or TIA. Endocrine: Negative for thyroid problems. Skin: Negative for rash or itching. Psychiatric: Negative history for depression and anxiety Past Medical History Past Medical History: Rheumatoid Arthritis (RA) Additional Past Medical History / Comment(s): autoimmune disorder-dx in 2010 w/ behcets disease by rhuematologist at [facility] in [place](but had symptoms since 2006),migraines, had shingle age 21, insomnia, "feels cold all the time usually wears 2 layers History of Any Multi-Drug Resistant Organisms: None Reported Past Surgical History: Tonsillectomy Additional Past Surgical History / Comment(s): tonsils removed age 23. lt knee acl repar, egd/colonoscpy Past Anesthesia/Blood Transfusion Reactions: Motion Sickness Additional Past Anesthesia/Blood Transfusion Reaction / Comm: "has never received blood transfusion" Smoking Status: Never smoker - Past Family History Mother Family Medical History: Cancer Additional Family Medical History / Comment(s): colon cancer Father Family Medical History: Diabetes Mellitus Medications and Allergies Home Medications Medication Instructions Recorded Confirmed Type No Known Home Medications 03/31/18 03/31/18 History Allergies Allergy/AdvReac Type Severity Reaction Status Date / Time Milk Containing Products AdvReac Nausea & Verified 03/31/18 12:17 [Dairy] Vomiting Yeast AdvReac Nausea & Verified 03/31/18 12:17 Vomiting Physical Exam Vitals: Vital Signs Temp Pulse Pulse Resp BP BP Pulse Ox 04/01/18 07:00 97.3 F L 58 L 14 134/71 98 03/31/18 23:00 97.7 F 56 L 16 144/82 96 03/31/18 16:30 97.6 F 56 L 16 114/64 96 03/31/18 15:47 53 L 17 119/71 100 03/31/18 13:45 51 L 17 123/73 100 03/31/18 11:56 97.5 F L 50 L 18 121/72 98 Intake and Output 03/31/18 04/01/18 04/01/18 22:59 06:59 14:59 Other: # Voids 2 2 General appearance: The patient is alert, oriented, in no acute distress. HET: Head is normocephalic and atraumatic. Pupils are equal and reactive. Oropharynx is clear without lesions. Neck: Supple without lymphadenopathy. Trachea midline. Heart: S1 S2. Regular rate and rhythm. Lungs: No crackles or wheezes are heard. Abdomen: Soft, very mild tenderness to the left mid quadrant epigastric region , nondistended with bowel sounds. No peritoneal signs. No palpable organomegaly or masses. Extremities: Normal skin color and turgor. No cyanosis, rash, ulceration, clubbing, or edema. Radial and pedal pulses are 2/4 bilaterally. Neurological: No focal deficits. Strength and sensation are grossly intact. Results CBC & Chem 7: 03/31/18 12:35 12 12:35 Labs: Abnormal Lab Results - Last 24 Hours (Table) 03/31/18 03/31/18 Range/Units 12:35 14:57 Glucose 102 H (74-99) mg/dL U Benzodiazepines Scrn Detected H (NotDetected) U Marijuana (THC) Screen Detected H (NotDetected) Abdominal x-ray: report reviewed (Dr. Tejeda) CT scan - abdomen: report reviewed (Dr. Tejeda) Assessment and Plan (1) Gastroenteritis Narrative/Plan: 32-year-old gentleman presents with a 1 week history of intractable nausea vomiting left-sided abdominal pain without fever chills hematemesis hematochezia or melena with clinical improvement. Suspect acute gastroenteritis possible ileus. Current Visit: Yes Status: Acute Code(s): K52.9 - NONINFECTIVE GASTROENTERITIS AND COLITIS, UNSPECIFIED SNOMED Code(s): 54253529 (2) Behcet's disease Current Visit: Yes Status: Acute Code(s): M35.2 - BEHCET'S DISEASE SNOMED Code(s): 671707673 (3) Intractable nausea and vomiting Current Visit: Yes Status: Acute Code(s): R11.2 - NAUSEA WITH VOMITING, UNSPECIFIED SNOMED Code(s): 249223215 (4) Abdominal pain Current Visit: No Status: Acute Code(s): R10.9 - UNSPECIFIED ABDOMINAL PAIN SNOMED Code(s): 81602328 Plan: 1. EGD was discussed however patient is feeling better and would like to advance his diet and be discharged. If patient is able to tolerate his advance diet would be agreeable for discharge and he can follow up in the outpatient setting as needed. If patient is not able to tolerate his diet and/or GI symptoms recur will proceed with EGD evaluation before discharge. Thank you for this kind referral and the opportunity to participate in the care of your patient. This consultation was discussed with Dr. Tejeda. The impression and plan of care have been directed as dictated.
[2018-04-01 15:00] VITALS: BP 134/62; PULSE 56; TEMP 98.7
[2018-04-02] MEDS ORDERED: PANTOPRAZOLE 40 MG TABLET PO SCH (09:00)
== END 2018-04-01 18:19 | disposition home or self-care (01) ==
LOC: EC 11:48 → 4MS4W 15:21
PROVIDERS: ADMIT Family Medicine; ATTEND Family Medicine
DX: K52.9 Noninfective gastroenteritis and colitis, unspecified (principal); E86.0 Dehydration; K56.7 Ileus, unspecified; F12.10 Cannabis abuse, uncomplicated; M35.2 Behcet's disease; Z91.011 Allergy to milk products; Z91.018 Allergy to other foods; Z80.0 Family history of malignant neoplasm of digestive organs; Z83.3 Family history of diabetes mellitus
CPT/HCPCS: 96376; 96361 ×2; 96374; 96375; 99285; 36415; 80053; 85652; 82150; 83605; 83690; 85025; 86140; 81003; 80306; 74018; G0378 ×2; J2405; J1170; C9113 ×2

== ENCOUNTER 2018-07-21 08:38 | Emergency (ER) | payer OTHER ==
[2018-07-21] MEDS ORDERED: SODIUM CHLORIDE 0.9% 1,000 ML IV STA (09:33)
[2018-07-21] MEDS ORDERED: SODIUM CHLORIDE 0.9% 2,000 ML IV ONE (09:33)
[2018-07-21] MEDS ORDERED: KETOROLAC 30 MG/ML 1 ML VIAL IVP STA (09:34)
[2018-07-21] MEDS: ONDANSETRON 4 MG/2 ML VIAL IVP STA ×2 (09:44→12:50)
[2018-07-21 09:47] LABS: Basophils % (A) 0 %; Eosinophils # (A) 0.3 k/uL (0-0.7); Eosinophils % (A) 4 %; HCT 47.4 % (39.0-53.0); Lymphocytes # (A) 0.6 k/uL (1.0-4.8); Lymphocytes % (A) 8 %; MCH 29.8 pg (25.0-35.0); MCHC 33.7 g/dL (31.0-37.0); MCV 88.2 fL (80.0-100.0); Mean Platelet Volume 7.2; Monocytes # (A) 0.3 k/uL (0-1.0); Monocytes % (A) 4 %; Neutrophils # (A) 6.4 k/uL (1.3-7.7); Neutrophils % (A) 83 %; Platelet Count 222 k/uL (150-450); RBC 5.38 m/uL (4.30-5.90); RDW 14.5 % (11.5-15.5); WBC 7.7 k/uL (3.8-10.6)
[2018-07-21 10:02] LABS: ALT 28 U/L (21-72); AST 36 U/L (17-59); Albumin 3.9 g/dL (3.5-5.0); Alkaline Phosphatase 61 U/L (38-126); Anion Gap 8 mmol/L; Blood Urea Nitrogen 19 mg/dL (9-20); Carbon Dioxide 23 mmol/L (22-30); Chloride 106 mmol/L (98-107); Glucose 106 mg/dL (74-99); Magnesium 1.8 mg/dL (1.6-2.3); Potassium 4.3 mmol/L (3.5-5.1); Sodium 137 mmol/L (137-145); Total Bilirubin 0.6 mg/dL (0.2-1.3); Total Protein 6.3 g/dL (6.3-8.2)
[2018-07-21 11:04] LABS: Creatine Kinase MB 1.3 ng/mL (0.0-2.4)
[2018-07-21] MEDS ORDERED: LORazepam 2 MG/ML INJ IV STA (11:48)
[2018-07-21] MEDS ORDERED: KETAMINE 10 MG/ML 20 ML VIAL IV ONE (11:48)
[2018-07-21 13:11] VITALS: RESP 18
[2018-07-21] MEDS ORDERED: methylPREDNISolone SOD SUCCI 125 MG/2 ML VIAL IV STA (13:21)
--- NOTE | 2018-07-21 14:50 | ED ---
Back Pain HPI - General Chief Complaint: Back Pain/Injury Stated Complaint: body aches, abdominal pain Time Seen by Provider: 07/21/18 09:13 Source: patient, RN notes reviewed Limitations: no limitations - History of Present Illness Initial Comments: This is a 32-year-old male with a history of Behcet's disease who complains of several days of refractory low back pain that it really does happen to him he states she's been having tremors because of it unable eat very well because of it. 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 He states this does intermittently happen where he has to come in and be seen for this. No fevers chills he has had some nausea no diarrhea. MD Complaint: back pain - Related Data Previous Rx's Medication Instructions Recorded Ibuprofen 800 mg PO Q6HR PRN #20 tablet 07/21/18 predniSONE 20 mg PO BID #10 tab 07/21/18 Allergies Allergy/AdvReac Type Severity Reaction Status Date / Time Milk Containing Products AdvReac Nausea & Verified 07/21/18 09:09 [Dairy] Vomiting Yeast AdvReac Nausea & Verified 07/21/18 09:09 Vomiting Review of Systems ROS Statement: Those systems with pertinent positive or pertinent negative responses have been documented in the HPI. ROS Other: All systems not noted in ROS Statement are negative. 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 lt knee acl repar, egd/colonoscpy Past Anesthesia/Blood Transfusion Reactions: Motion Sickness Additional Past Anesthesia/Blood Transfusion Reaction / Comment(s): "has never received blood transfusion" Past Psychological History: No Psychological Hx Reported Smoking Status: Never smoker - Past Family History Mother Family Medical History: Cancer Additional Family Medical History / Comment(s): colon cancer Father Family Medical History: Diabetes Mellitus General Exam - General Exam Comments Initial Comments: Is a well-developed well-nourished awake alert oriented 3 male Limitations: no limitations General appearance: alert, in no apparent distress Head exam: Present: atraumatic, normocephalic, normal inspection Eye exam: Present: normal appearance, PERRL, EOMI. Absent: scleral icterus, conjunctival injection, periorbital swelling ENT exam: Present: normal exam, mucous membranes moist Neck exam: Present: normal inspection. Absent: tenderness, meningismus, lymphadenopathy Respiratory exam: Present: normal lung sounds bilaterally. Absent: respiratory distress, wheezes, rales, rhonchi, stridor Cardiovascular Exam: Present: regular rate, normal rhythm, normal heart sounds. Absent: systolic murmur, diastolic murmur, rubs, gallop, clicks GI/Abdominal exam: Present: soft, normal bowel sounds. Absent: distended, tenderness, guarding, rebound, rigid Extremities exam: Present: normal inspection, full ROM, normal capillary refill. Absent: tenderness, pedal edema, joint swelling, calf tenderness Back exam: Present: normal inspection, tenderness, muscle spasm, paraspinal tenderness. Absent: CVA tenderness (R), vertebral tenderness, rash noted Neurological exam: Present: alert, oriented X3, CN II-XII intact Psychiatric exam: Present: normal affect, normal mood Skin exam: Present: warm, dry, intact, normal color. Absent: rash Course Vital Signs 07/21/18 07/21/18 07/21/18 08:39 11:29 12:53 Temperature 97.8 F 97.2 F L Pulse Rate 61 71 63 Respiratory 16 19 18 Rate Blood Pressure 137/90 136/94 133/65 O2 Sat by Pulse 100 97 98 Oximetry 07/21/18 07/21/18 07/21/18 12:56 13:09 13:53 Temperature Pulse Rate 101 H 79 80 Respiratory 16 18 18 Rate Blood Pressure 169/106 162/95 133/80 O2 Sat by Pulse 100 99 98 Oximetry - Reevaluation(s) Reevaluation #1: 07/21/18 14:47 Patient did require several medications to help with his pain control including IV ketamine which was administered by me. Medical Decision Making - Medical Decision Making Patient did finally obtain control and relief of his pain he'll be discharged on a short course of oral steroids he is a follow-up with family medicine and return when necessary - Lab Data Result diagrams: 07/21/18 09:32 07/21/18 09:32 Lab Results 07/21/18 07/21/18 07/21/18 Range/Units 09:32 09:32 09:32 WBC 7.7 (3.8-10.6) k/uL RBC 5.38 (4.30-5.90) m/uL Hgb 16.0 (13.0-17.5) gm/dL Hct 47.4 (39.0-53.0) % MCV 88.2 (80.0-100.0) fL MCH 29.8 (25.0-35.0) pg MCHC 33.7 (31.0-37.0) g/dL RDW 14.5 (11.5-15.5) % Plt Count 222 (150-450) k/uL Neutrophils % 83 % Lymphocytes % 8 % Monocytes % 4 % Eosinophils % 4 % Basophils % 0 % Neutrophils # 6.4 (1.3-7.7) k/uL Lymphocytes # 0.6 L (1.0-4.8) k/uL Monocytes # 0.3 (0-1.0) k/uL Eosinophils # 0.3 (0-0.7) k/uL Basophils # 0.0 (0-0.2) k/uL Sodium 137 (137-145) mmol/L Potassium 4.3 (3.5-5.1) mmol/L Chloride 106 (98-107) mmol/L Carbon Dioxide 23 (22-30) mmol/L Anion Gap 8 mmol/L BUN 19 (9-20) mg/dL Creatinine 0.82 (0.66-1.25) mg/dL Est GFR (CKD-EPI)AfAm >90 (>60 ml/min/1.73 sqM) Est GFR (CKD-EPI)NonAf >90 (>60 ml/min/1.73 sqM) Glucose 106 H (74-99) mg/dL Calcium 9.0 (8.4-10.2) mg/dL Magnesium 1.8 (1.6-2.3) mg/dL Total Bilirubin 0.6 (0.2-1.3) mg/dL AST 36 (17-59) U/L ALT 28 (21-72) U/L Alkaline Phosphatase 61 (38-126) U/L Total Creatine Kinase 325 H (55-170) U/L CK-MB (CK-2) 1.3 (0.0-2.4) ng/mL CK-MB (CK-2) Rel Index 0.4 Total Protein 6.3 (6.3-8.2) g/dL Albumin 3.9 (3.5-5.0) g/dL Disposition Clinical Impression: Mechanical back pain, Behcet's disease Disposition: HOME SELF-CARE Condition: Good Instructions (If sedation given, give patient instructions): Acute Low Back Pain (ED) Prescriptions: Ibuprofen 800 mg PO Q6HR PRN #20 tablet PRN Reason: Pain predniSONE 20 mg PO BID #10 tab Is patient prescribed a controlled substance at d/c from ED?: No Referrals: None,Stated [Primary Care Provider] - 1-2 days
[2018-07-21 16:26] VITALS: BP 126/69; PULSE 68; TEMP 98.5
== END 2018-07-21 15:05 | disposition home or self-care (01) ==
LOC: EC 08:38
DX: M35.2 Behcet's disease (principal); M54.5 Low back pain; Z91.011 Allergy to milk products; Z91.018 Allergy to other foods
CPT/HCPCS: 36415; 80053; 82550; 82553; 83735; 85025; 96361; 96374; 96375; 99283